=== PATIENT | female | born 1990 | race Caucasian/White ===

== ENCOUNTER 2020-11-22 22:42 | Inpatient (IN) | payer OTHER ==
[~2020-11-22] VITALS: Ht 162.6 cm; Wt 52.8 kg
[2020-11-22 23:12] LABS: BASOPHIL 0.6 % (0-2); EOSINOPHIL 0.1 % (0-5); HCT 49.4 % (37.0-47.0); HGB 15.6 g/dl (12.5-16.0); LYMPHOCYTE 5.4 % (15-48); MCH 30.2 pg (25.0-31.0); MCHC 31.6 g/dL (32.0-36.0); MCV 95.7 fL (78.0-100.0); MONOCYTE 5.8 % (0-12); NEUTROPHIL 87.1 % (41-80); NRBC 0; PLT 378 K/uL (150-400); RBC 5.16 M/uL (4.20-5.40); RDW 12.6 % (11.5-14.0); WBC 24.6 K/uL (4.0-10.5)
[2020-11-22 23:29] LABS: ALBUMIN 4.5 g/dL (3.4-5.0); BILIRUBIN - TOTAL 0.7 mg/dL (0.2-1.0); BUN/CREAT RATIO (CALC) 21.8 RATIO; CREATININE 0.78 mg/dL (0.51-0.95); GLOBULIN (CALCULATION) 4.6 g/dL; POTASSIUM 4.7 mmol/L (3.5-5.1); TOTAL PROTEIN 9.1 g/dL (6.4-8.2)
[2020-11-23 00:14] LABS: LACTIC ACID 3.5 mmol/L (0.4-1.9)
[2020-11-23 01:28] LABS: BILIRUBIN NEGATIVE (NEGATIVE); BLOOD TRACE-INTACT Ery/uL (NEGATIVE); CLARITY CLEAR (CLEAR); COLOR YELLOW (YELLOW); GLUCOSE (U) 2+ mg/dL (NORMAL); LEUKOCYTES NEGATIVE Leu/uL (NEGATIVE); NITRITE NEGATIVE (NEGATIVE); PROTEIN TRACE (LOW) mg/dL (NEGATIVE); SPECIFIC GRAVITY >=1.030 (1.001-1.030); UROBILINOGEN 0.2 mg/dL (0.2-1.0); pH 5.5 (5.0-9.0)
[2020-11-23 01:52] LABS: CREATININE 0.6 mg/dL (0.51-0.95); POTASSIUM 4.9 mmol/L (3.5-5.1)
[2020-11-23 05:05] LABS: BUN/CREAT RATIO (CALC) 24.1 RATIO; CREATININE 0.58 mg/dL (0.51-0.95); POTASSIUM 4.4 mmol/L (3.5-5.1)
--- NOTE | 2020-11-23 08:17 | NUR ---
RECEIVED PATIENT FROM ER VIA STRETCHER. REPORT FROM TERRIE
[2020-11-23 08:19] LABS: BUN/CREAT RATIO (CALC) 23.6 RATIO; CREATININE 0.55 mg/dL (0.51-0.95); POTASSIUM 4.6 mmol/L (3.5-5.1)
[2020-11-23] MEDS ORDERED: SUBOXONE 8 MG-1 EACH PO (08:24)
[2020-11-23] MEDS ORDERED: TRESIBA FL100 UNIT/1 SC (08:25)
[2020-11-23] MEDS ORDERED: NOVOLOG VI100 UNIT/1 SC (08:26)
[2020-11-23] MEDS ORDERED: 3IN1 COMMODE (08:26)
[2020-11-23 11:24] LABS: CREATININE 0.5 mg/dL (0.51-0.95); POTASSIUM 4.2 mmol/L (3.5-5.1)
[2020-11-23 15:34] LABS: BUN/CREAT RATIO (CALC) 10.1 RATIO; CREATININE 0.69 mg/dL (0.51-0.95); POTASSIUM 3.7 mmol/L (3.5-5.1)
[2020-11-23 22:32] LABS: BUN/CREAT RATIO (CALC) 9.1 RATIO; CREATININE 0.44 mg/dL (0.51-0.95); POTASSIUM 3.5 mmol/L (3.5-5.1)
[2020-11-24 06:55] LABS: BASOPHIL 0.9 % (0-2); EOSINOPHIL 3.6 % (0-5); HCT 31.1 % (37.0-47.0); LYMPHOCYTE 33.9 % (15-48); MCH 30.5 pg (25.0-31.0); MCHC 34.1 g/dL (32.0-36.0); MONOCYTE 12.7 % (0-12); MPV 10.2 fL (6.0-9.5); NEUTROPHIL 48.7 % (41-80); NRBC 0; PLT 169 K/uL (150-400); RBC 3.48 M/uL (4.20-5.40); RDW 12.6 % (11.5-14.0)
[2020-11-24 07:17] LABS: BUN/CREAT RATIO (CALC) 3.6 RATIO; CREATININE 0.56 mg/dL (0.51-0.95)
[2020-11-24 07:21] LABS: HGB 10.6 g/dl (12.5-16.0)
[2020-11-24 07:22] LABS: WBC 4.4 K/uL (4.0-10.5)
[2020-11-24 07:27] LABS: MCV 89.4 fL (78.0-100.0)
[2020-11-25 07:28] LABS: BUN/CREAT RATIO (CALC) 8.7 RATIO; CREATININE 0.46 mg/dL (0.51-0.95)
--- NOTE | 2020-11-25 12:41 | NUR ---
11/25 Patient was provided with information re: community diabetic education.
[2020-11-25] MEDS ORDERED: PHENERGAN25 M1 PO (15:27)
[2020-11-25] MEDS ORDERED: MIRALAX17 GM PO (15:27)
== END 2020-11-25 15:52 | disposition home or self-care (01) | DRG 638 ==
LOC: FER 22:42 → FICU 11-23 05:23 → FMS 11-24 08:03
PROVIDERS: Allergy & Immunology Allergy; Emergency Medicine; Emergency Medicine Emergency Medical Services; Hospitalist; ADMIT Internal Medicine
DX: E10.10 Type 1 diabetes mellitus with ketoacidosis without coma (principal); F11.20 Opioid dependence, uncomplicated; Z20.822 Contact with and (suspected) exposure to COVID-19; E03.9 Hypothyroidism, unspecified; K59.03 Drug induced constipation; T43.215A Adverse effect of selective serotonin and norepinephrine reuptake inhibitors, initial encounter; F10.10 Alcohol abuse, uncomplicated; F12.90 Cannabis use, unspecified, uncomplicated; Z79.890 Hormone replacement therapy; Z79.899 Other long term (current) drug therapy; Z83.3 Family history of diabetes mellitus
CPT/HCPCS: 36415; 36600; 71045; 80048; 80053; 81001; 82009; 82803; 82962; 83036; 83605; 83690; 84145; 84703; 85025; 87040; 93005; 94010; J0692; J1650; J1885; J2270; J2405; J2550; J3480; J7030; J7120; J7121; Q9967; U0002

== ENCOUNTER 2021-03-09 17:26 | Inpatient (IN) | payer OTHER ==
[~2021-03-09] VITALS: Ht 162.6 cm; Wt 55.6 kg
[~2021-03-09 17:26] MED LIST: 3IN1 COMMODE; MIRALAX17 GM PO; NOVOLOG VI100 UNIT/1 SC; PHENERGAN25 M1 PO; SUBOXONE 8 MG-1 EACH PO; TRESIBA FL100 UNIT/1 SC
[2021-03-09 19:43] LABS: BASOPHIL 0.9 % (0-2); EOSINOPHIL 0.2 % (0-5); HCT 48.7 % (37.0-47.0); MCH 30.4 pg (25.0-31.0); MCHC 32.9 g/dL (32.0-36.0); MCV 92.4 fL (78.0-100.0); MONOCYTE 4.3 % (0-12); MPV 10.9 fL (6.0-9.5); NEUTROPHIL 85.6 % (41-80); NRBC 0; PLT 430 K/uL (150-400); RBC 5.27 M/uL (4.20-5.40); RDW 12.7 % (11.5-14.0); WBC 17.4 K/uL (4.0-10.5)
[2021-03-09 20:10] LABS: LACTIC ACID 1.5 mmol/L (0.4-1.9)
[2021-03-09 20:11] LABS: ALBUMIN 4.9 g/dL (3.4-5.0); ALKALINE PHOSHATASE 129 U/L (46-116); ALT 46 U/L (14-59); AST 29 U/L (15-37); BILIRUBIN - TOTAL 0.5 mg/dL (0.2-1.0); BUN 17 mg/dL (7-18); BUN/CREAT RATIO (CALC) 26.2 RATIO; CHLORIDE 89 mmol/L (98-107); CREATININE 0.65 mg/dL (0.51-0.95); GLOBULIN (CALCULATION) 4.6 g/dL; LIPASE 47 U/L (73-393); MAGNESIUM 2.5 mg/dL (1.8-2.4); POTASSIUM 5.1 mmol/L (3.5-5.1); TOTAL PROTEIN 9.5 g/dL (6.4-8.2)
[2021-03-09 20:14] LABS: CO2 (BICARBONATE) < 5 mmol/L (21-32); GLUCOSE 465 mg/dL (74-106)
[2021-03-09 22:11] LABS: BILIRUBIN NEGATIVE (NEGATIVE); BLOOD TRACE-INTACT Ery/uL (NEGATIVE); CLARITY CLEAR (CLEAR); COLOR YELLOW (YELLOW); GLUCOSE (U) 2+ mg/dL (NORMAL); LEUKOCYTES NEGATIVE Leu/uL (NEGATIVE); NITRITE NEGATIVE (NEGATIVE); PROTEIN 1+ mg/dL (NEGATIVE); SPECIFIC GRAVITY >=1.030 (1.001-1.030); UROBILINOGEN 0.2 mg/dL (0.2-1.0); pH 5.5 (5.0-9.0)
[2021-03-09 22:18] LABS: BACTERIA TRACE
[2021-03-09 22:38] LABS: BUN 16 mg/dL (7-18); BUN/CREAT RATIO (CALC) 26.2 RATIO; CHLORIDE 97 mmol/L (98-107); CREATININE 0.61 mg/dL (0.51-0.95); GLUCOSE 385 mg/dL (74-106); POTASSIUM 4.5 mmol/L (3.5-5.1)
[2021-03-09 22:44] LABS: CO2 (BICARBONATE) <5 mmol/L (21-32)
[2021-03-10 01:26] LABS: CORONAVIRUS 2019 SARS-COV-2 NEGATIVE (NEGATIVE); INFLUENZA A NAA NEGATIVE (NEGATIVE)
[2021-03-10 02:18] LABS: BUN 12 mg/dL (7-18); BUN/CREAT RATIO (CALC) 22.2 RATIO; CHLORIDE 102 mmol/L (98-107); CREATININE 0.54 mg/dL (0.51-0.95); GLUCOSE 183 mg/dL (74-106); POTASSIUM 5.3 mmol/L (3.5-5.1)
[2021-03-10 02:20] LABS: CO2 (BICARBONATE) < 5 mmol/L (21-32)
[2021-03-10 07:06] LABS: BUN/CREAT RATIO (CALC) 13.7 RATIO; CREATININE 0.51 mg/dL (0.51-0.95); POTASSIUM 4.3 mmol/L (3.5-5.1)
[2021-03-10 12:25] LABS: BUN/CREAT RATIO (CALC) 12.8 RATIO; CREATININE 0.47 mg/dL (0.51-0.95); PHOSPHORUS 1.3 mg/dL (2.6-4.7); POTASSIUM 3.8 mmol/L (3.5-5.1)
[2021-03-10 12:29] LABS: MAGNESIUM 1.9 mg/dL (1.8-2.4)
[2021-03-10 17:25] LABS: BUN/CREAT RATIO (CALC) 11.9 RATIO; CREATININE 0.42 mg/dL (0.51-0.95); POTASSIUM 3.9 mmol/L (3.5-5.1)
[2021-03-10 23:09] LABS: CREATININE 0.44 mg/dL (0.51-0.95); POTASSIUM 3.7 mmol/L (3.5-5.1)
[2021-03-11 03:28] LABS: BUN/CREAT RATIO (CALC) 4.4 RATIO; CREATININE 0.45 mg/dL (0.51-0.95); POTASSIUM 3.5 mmol/L (3.5-5.1)
[2021-03-11 07:45] LABS: BUN/CREAT RATIO (CALC) 4.5 RATIO; CREATININE 0.44 mg/dL (0.51-0.95); POTASSIUM 4.1 mmol/L (3.5-5.1)
[2021-03-11 11:31] LABS: BUN/CREAT RATIO (CALC) 8.7 RATIO; CREATININE 0.46 mg/dL (0.51-0.95); POTASSIUM 4.2 mmol/L (3.5-5.1)
[2021-03-11] MEDS ORDERED: SYNTHROID25 MCG PO (14:22)
[2021-03-11 15:18] LABS: BUN/CREAT RATIO (CALC) 9.8 RATIO; CREATININE 0.51 mg/dL (0.51-0.95); POTASSIUM 3.8 mmol/L (3.5-5.1)
[2021-03-11 19:12] LABS: BUN/CREAT RATIO (CALC) 6.9 RATIO; CREATININE 0.58 mg/dL (0.51-0.95); POTASSIUM 3.9 mmol/L (3.5-5.1)
[2021-03-11 23:24] LABS: BUN/CREAT RATIO (CALC) 8.2 RATIO; CREATININE 0.49 mg/dL (0.51-0.95); POTASSIUM 3.9 mmol/L (3.5-5.1)
[2021-03-12 03:57] LABS: BUN/CREAT RATIO (CALC) 5.9 RATIO; CREATININE 0.51 mg/dL (0.51-0.95); POTASSIUM 3.4 mmol/L (3.5-5.1)
[2021-03-12 07:56] LABS: BASOPHIL 0.5 % (0-2); EOSINOPHIL 1.7 % (0-5); HCT 36.1 % (37.0-47.0); HGB 12.3 g/dl (12.5-16.0); LYMPHOCYTE 32.9 % (15-48); MCH 30.1 pg (25.0-31.0); MCHC 34.1 g/dL (32.0-36.0); MCV 88.5 fL (78.0-100.0); MPV 9.8 fL (6.0-9.5); NEUTROPHIL 51.4 % (41-80); NRBC 0; PLT 202 K/uL (150-400); RBC 4.08 M/uL (4.20-5.40); WBC 4.2 K/uL (4.0-10.5)
[2021-03-12 08:22] LABS: ALBUMIN 2.8 g/dL (3.4-5.0); BILIRUBIN - TOTAL 0.4 mg/dL (0.2-1.0); BUN/CREAT RATIO (CALC) 7.8 RATIO; CREATININE 0.51 mg/dL (0.51-0.95); GLOBULIN (CALCULATION) 2.7 g/dL; MAGNESIUM 1.8 mg/dL (1.8-2.4); PHOSPHORUS 2.6 mg/dL (2.6-4.7); POTASSIUM 3.8 mmol/L (3.5-5.1)
[2021-03-12 09:00] LABS: TOTAL PROTEIN 5.5 g/dL (6.4-8.2)
[2021-03-12 11:31] LABS: BUN/CREAT RATIO (CALC) 11.1 RATIO; CREATININE 0.45 mg/dL (0.51-0.95)
== END 2021-03-12 14:30 | disposition home or self-care (01) | DRG 638 ==
LOC: FER 17:26 → FMS 03-11 09:51
PROVIDERS: Emergency Medicine; Emergency Medicine Emergency Medical Services; Internal Medicine; ADMIT Internal Medicine
DX: E10.10 Type 1 diabetes mellitus with ketoacidosis without coma (principal); F11.20 Opioid dependence, uncomplicated; E87.1 Hypo-osmolality and hyponatremia; E03.9 Hypothyroidism, unspecified; F10.10 Alcohol abuse, uncomplicated; E87.6 Hypokalemia; Z20.822 Contact with and (suspected) exposure to COVID-19; G89.29 Other chronic pain; E83.39 Other disorders of phosphorus metabolism; Z83.3 Family history of diabetes mellitus; Z79.890 Hormone replacement therapy; Z79.899 Other long term (current) drug therapy
CPT/HCPCS: 36415; 36600; 71045; 74018; 80048; 80053; 81001; 82009; 82803; 83605; 83690; 83735; 84100; 84443; 85025; 87040; 93005; J1170; J1815; J1885; J2060; J2270; J2405; J2550; J3480; J7030; J7040; J7042; J7050; U0002

== ENCOUNTER 2021-03-22 20:44 | Inpatient (IN) | payer OTHER ==
[~2021-03-22] VITALS: Ht 162.6 cm; Wt 57.3 kg
[~2021-03-22 20:44] MED LIST changes: +SYNTHROID25 MCG PO
[2021-03-22 21:05] LABS: BASOPHIL 0.5 % (0-2); EOSINOPHIL 0 % (0-5); HCT 47.1 % (37.0-47.0); HGB 15.2 g/dl (12.5-16.0); MCH 29.5 pg (25.0-31.0); MCHC 32.3 g/dL (32.0-36.0); MCV 91.5 fL (78.0-100.0); MONOCYTE 6.9 % (0-12); MPV 10.1 fL (6.0-9.5); NRBC 0; PLT 174 K/uL (150-400); RBC 5.15 M/uL (4.20-5.40); RDW 13.7 % (11.5-14.0); WBC 8.1 K/uL (4.0-10.5)
[2021-03-22 21:19] LABS: BILIRUBIN 1+ mg/dL (NEGATIVE); BLOOD TRACE-INTACT Ery/uL (NEGATIVE); CLARITY CLEAR (CLEAR); COLOR YELLOW (YELLOW); GLUCOSE (U) 1+ mg/dL (NORMAL); LEUKOCYTES NEGATIVE Leu/uL (NEGATIVE); NITRITE NEGATIVE (NEGATIVE); PROTEIN 1+ mg/dL (NEGATIVE); SPECIFIC GRAVITY >=1.030 (1.001-1.030); UROBILINOGEN 0.2 mg/dL (0.2-1.0); pH 5.5 (5.0-9.0)
[2021-03-22 21:24] LABS: ALBUMIN 3.5 g/dL (3.4-5.0); BILIRUBIN - TOTAL 0.3 mg/dL (0.2-1.0); BUN/CREAT RATIO (CALC) 24.5 RATIO; CREATININE 0.53 mg/dL (0.51-0.95); GLOBULIN (CALCULATION) 3.8 g/dL; POTASSIUM 5.2 mmol/L (3.5-5.1); TOTAL PROTEIN 7.3 g/dL (6.4-8.2)
[2021-03-22 21:25] LABS: BACTERIA 1+
[2021-03-22 21:26] LABS: AMORPHOUS URATES CRYSTALS TRACE; GRANULAR CASTS TRACE
[2021-03-22 21:27] LABS: LACTIC ACID 1.1 mmol/L (0.4-1.9)
[2021-03-23 00:19] LABS: BUN/CREAT RATIO (CALC) 19.2 RATIO; CREATININE 0.52 mg/dL (0.51-0.95); POTASSIUM 4.7 mmol/L (3.5-5.1)
[2021-03-23 03:28] LABS: AMPHETAMINES NEGATIVE (NEGATIVE); BARBITURATES NEGATIVE (NEGATIVE); ECSTASY (MDMA) NEGATIVE (NEGATIVE); MARIJUANA (THC) POSITIVE (NEGATIVE); METHADONE NEGATIVE (NEGATIVE); OPIATES NEGATIVE (NEGATIVE); OXYCODONE NEGATIVE (NEGATIVE)
[2021-03-23 10:30] LABS: BUN/CREAT RATIO (CALC) 14.6 RATIO; CREATININE 0.41 mg/dL (0.51-0.95)
[2021-03-23 10:50] LABS: POTASSIUM 2.9 mmol/L (3.5-5.1)
[2021-03-23 14:25] LABS: BUN/CREAT RATIO (CALC) 10.9 RATIO; CREATININE 0.46 mg/dL (0.51-0.95); POTASSIUM 3.4 mmol/L (3.5-5.1)
[2021-03-23 18:25] LABS: BUN/CREAT RATIO (CALC) 6.7 RATIO; CREATININE 0.45 mg/dL (0.51-0.95); POTASSIUM 3.7 mmol/L (3.5-5.1)
[2021-03-23 22:22] LABS: BUN/CREAT RATIO (CALC) 6.8 RATIO; CREATININE 0.44 mg/dL (0.51-0.95); POTASSIUM 3.3 mmol/L (3.5-5.1)
[2021-03-24 02:23] LABS: BUN/CREAT RATIO (CALC) 4.5 RATIO; CREATININE 0.44 mg/dL (0.51-0.95); POTASSIUM 3.9 mmol/L (3.5-5.1)
[2021-03-24 06:51] LABS: BASOPHIL 0.3 % (0-2); EOSINOPHIL 0 % (0-5); HCT 39.3 % (37.0-47.0); HGB 13.6 g/dl (12.5-16.0); LYMPHOCYTE 19.5 % (15-48); MCH 29.7 pg (25.0-31.0); MCHC 34.6 g/dL (32.0-36.0); MONOCYTE 11.4 % (0-12); MPV 9.9 fL (6.0-9.5); NEUTROPHIL 67.4 % (41-80); NRBC 0; PLT 147 K/uL (150-400); RBC 4.58 M/uL (4.20-5.40); WBC 3.6 K/uL (4.0-10.5)
[2021-03-24 06:54] LABS: MCV 85.8 fL (78.0-100.0)
[2021-03-24 07:38] LABS: CREATININE 0.4 mg/dL (0.51-0.95); POTASSIUM 3.1 mmol/L (3.5-5.1)
[2021-03-24 13:41] LABS: BUN/CREAT RATIO (CALC) 8.3 RATIO; CREATININE 0.36 mg/dL (0.51-0.95); POTASSIUM 3.5 mmol/L (3.5-5.1)
[2021-03-25 05:48] LABS: CREATININE 0.43 mg/dL (0.51-0.95); POTASSIUM 3.4 mmol/L (3.5-5.1)
--- NOTE | 2021-03-25 17:15 | NUR ---
03/25/21 Ms. Ma and her son son share a home with her boyfriend. She is employed although she has had a number of missed days due illness. Ms. Ma was educated to [email or web address], [facility] and [employer].
--- NOTE | 2021-03-26 05:54 | NUR ---
X1 EPISODE OF VOMITING GREENISH COLORED LIQUID MODERATE AMOUNT. ZOFRAN 4MG GIVEN IVP.
[2021-03-26 07:19] LABS: BUN/CREAT RATIO (CALC) 6.4 RATIO; C-REACTIVE PROTEIN 3.7 mg/dL (<=0.90); CREATININE 0.47 mg/dL (0.51-0.95); MAGNESIUM 1.9 mg/dL (1.8-2.4); POTASSIUM 3.8 mmol/L (3.5-5.1)
[2021-03-26] MEDS ORDERED: ASCORBIC ACID500 MG PO (08:14)
[2021-03-26] MEDS ORDERED: ROBITUSSIN W/CODEINE PO (08:14)
[2021-03-26] MEDS ORDERED: VENTOLIN HFA IN18 GM INH (08:14)
[2021-03-26] MEDS ORDERED: ZINC SULFATE50 MG PO (08:14)
[2021-03-26] MEDS ORDERED: VITAMIN D325 MC1 PO (08:14)
[2021-03-26] MEDS ORDERED: ROBITUSSIN W/COD5 ML PO (08:15)
== END 2021-03-26 09:20 | disposition home or self-care (01) | DRG 637 ==
LOC: FER 20:44 → FMS 03-23 01:04 → FICU 03-23 01:04 → FMS 03-23 01:05 → FICU 03-23 11:08 → FMS 03-25 13:57
PROVIDERS: Allergy & Immunology Allergy; Emergency Medicine; Family Medicine; Hospitalist; ADMIT Internal Medicine
PROC: 8E0ZXY6 Isolation (ICD-10-PCS; principal; 2021-03-23)
DX: E10.10 Type 1 diabetes mellitus with ketoacidosis without coma (principal); U07.1 COVID-19; F11.20 Opioid dependence, uncomplicated; E03.9 Hypothyroidism, unspecified; E87.6 Hypokalemia; E10.43 Type 1 diabetes mellitus with diabetic autonomic (poly)neuropathy; K31.84 Gastroparesis; G89.29 Other chronic pain; Z79.899 Other long term (current) drug therapy; Z72.89 Other problems related to lifestyle
CPT/HCPCS: 36415; 36600; 80048; 80053; 80305; 81001; 82728; 82803; 82962; 83605; 83735; 84443; 85025; 85379; 86140; 87040; 94010; C9113; G0480; J1650; J1815; J2270; J2405; J2550; J3411; J3480; J7030; J7120; U0002